=== PATIENT | male | born 1980 | race Caucasian/White ===

== ENCOUNTER 2020-03-23 12:16 | Emergency (ER) | payer OTHER ==
[~2020-03-23] VITALS: Ht 190.5 cm; Wt 98.4 kg
[2020-03-23] MEDS ORDERED: ESSETAB4 PO (12:24)
--- NOTE | 2020-03-23 13:20 | REP ---
INDICATION: injury to L 5th digit COMPARISON: None. TECHNIQUE: AP, lateral, bilateral oblique views left 5th digit. FINDINGS: Crush injury with nondisplaced fracture of the terminal tuft noted IMPRESSION: Nondisplaced fracture of the 5th digit terminal tuft. <Electronically signed by Joseph Juan > 03/23/20 [id number]
[2020-03-23] MEDS ORDERED: ceFAZolin SOD 2 GM in IV 1 EA IV ONE (13:30)
[2020-03-23] MEDS ORDERED: LIDOCAINE 2% MDV 20ML VIAL SC ONE (14:15)
[2020-03-23] MEDS ORDERED: KEFL500C17 PO (14:40)
[2020-03-23 14:42] VITALS: BP 118/63
== END 2020-03-23 15:00 | disposition home or self-care (01) ==
LOC: M ED 12:16
DX: S62.667B Nondisplaced fracture of distal phalanx of left little finger, initial encounter for open fracture (principal); W31.2XXA Contact with powered woodworking and forming machines, initial encounter; Y92.098 Other place in other non-institutional residence as the place of occurrence of the external cause; Y93.89 Activity, other specified; Y99.8 Other external cause status
CPT/HCPCS: 11760; 73140; 96365; 99284; J0690

== ENCOUNTER → 2020-11-10 | Outpatient (REF) | payer OTHER ==
[~2020-11-10] MED LIST: ESSETAB4 PO; KEFL500C17 PO
== END ==
LOC: M SMT 13:00
PROVIDERS: ATTEND Urology
DX: Z30.2 Encounter for sterilization (principal)

== ENCOUNTER → 2021-02-11 | Outpatient (REF) | payer OTHER ==
[2021-02-11 11:19] LABS: SEMEN APPEARANCE OPAQUE (OPAQUE)
[2021-02-11 11:21] LABS: SEMEN VISCOSITY LIQUID (LIQUID); WBC CONCENTRATION <=1 M/ml (<=1 M/ml)
== END ==
LOC: M SMT 11:09
PROVIDERS: ATTEND Urology
DX: Z30.2 Encounter for sterilization (principal)